=== PATIENT | male | born 1960 | race Caucasian/White ===

== ENCOUNTER → 2019-11-20 | Day surgery (SDC) | payer OTHER ==
[~2019-11-20] MED LIST: ATORVASTATIN CA10 MG PO; BUPIVACAINE 0.5%/EPI 30 ML SDV INJ ONE; CEFAZOLIN SOD 1 GM/NS 50ML 100 ML IV ONE; DEXAMETHASONE SOD PHOS INJ 4 MG/ML VIAL ONE; LIDOCAINE HCL 2% JELLY 5 ML TUBE ONE; LIDOCAINE HCL 2% LOCAL INJ 5 ML SDV VIAL INJ ONE; LOSARTAN POTASS25 MG PO; MIDAZOLAM HCL 2 MG/2 ML VIAL ONE; OMEPRAZOLE40 MG PO; ONDANSETRON HCL INJ 2MG/ML 2ML 2 MG/ML VIAL ONE; PROPOFOL IV EMULSION 10 MG/ML 20 ML VIAL ONE; SEVOFLURANE INHAL SOLN 250 ML PEN BTL ONE
[2019-11-20 11:24] VITALS: BP 142/95
--- NOTE | 2019-11-23 22:33 | Operative Report ---
DATE OF PROCEDURE: 11/20/2019 SURGEON: Rafa Cid MD PREOPERATIVE DIAGNOSES: 1. Left knee medial meniscus tear. 2. Left knee degenerative joint disease of the knee. POSTOPERATIVE DIAGNOSES: 1. Left knee medial meniscus tear. 2. Left knee degenerative joint disease of the knee. OPERATIONS/PROCEDURES PERFORMED: The patient underwent left knee exam under anesthesia, left knee arthroscopy, left knee partial medial meniscectomy; left knee chondroplasty of the patella, the trochlea, the medial femoral condyle, the medial tibial plateau, and the lateral tibial plateau. BLUEPRINT DEVELOPER: There was no health education assistant. ANESTHESIA: General endotracheal intubation anesthesia. IV FLUIDS: Per the anesthesia record. BLOOD LOSS: Less than 5 mL. COMPLICATIONS: None. BRIEF DESCRIPTION OF THE PATIENT'S OPERATIVE PROCEDURE: Mr. Cummings was taken to the operating room and placed in supine position on the operating table. Following induction of general anesthesia as well as endotracheal intubation, the patient's left lower extremity was examined under anesthesia. He was found to have a mild effusion within the knee joint, but otherwise ligamentously stable knee. The patient's lower extremity was prepped and draped in a standard surgical fashion. A two-port technique used to provide this patient arthroscopic evaluation of the knee joint. Examination of suprapatellar pouch, medial lateral and gutters were found no evidence of loose bodies. There was however evidence of chondromalacia of the patella and trochlear surfaces. The scope was advanced to the medial compartment. Examination of the medial compartment demonstrated a torn posterior horn and root of the medial meniscus. There was also chondromalacia of the articulating surfaces. A combination of biting forceps and motorized shaver used to resect the torn portion of the meniscus. Chondroplasties of the medial femoral condyle and medial tibial plateau performed at this time. Scope was then advanced to the intercondylar notch and the anterior cruciate ligament identified and found to be intact. The scope was advanced to the lateral compartment and chondromalacia of the lateral tibial plateau was encountered. A chondroplasty of the lateral tibial plateau was performed at this time. The scope was then advanced to the suprapatellar pouch and chondroplasties of the patellar and trochlear performed. The knee was then deflated with sterile normal saline. Each of the portal sites were closed using 4-0 nylon suture. The portal sites as well as knee itself were injected with 0.5% Marcaine with epinephrine. Sterile dressings were applied and the patient was then awakened and taken to postanesthesia care unit in stable condition. MD VINNY Sims/BRISEIDA /[id number]
== END | disposition home or self-care (01) ==
LOC: OR 07:55
PROVIDERS: ATTEND Specialist
DX: S83.222A Peripheral tear of medial meniscus, current injury, left knee, initial encounter (principal); M17.12 Unilateral primary osteoarthritis, left knee; M22.42 Chondromalacia patellae, left knee; I10 Essential (primary) hypertension; G47.33 Obstructive sleep apnea (adult) (pediatric); K21.9 Gastro-esophageal reflux disease without esophagitis; X58.XXXA Exposure to other specified factors, initial encounter; Z01.810 Encounter for preprocedural cardiovascular examination; Z01.812 Encounter for preprocedural laboratory examination; Z11.59 Encounter for screening for other viral diseases
CPT/HCPCS: 29881; 93005; J0690; J1100; J2001 ×2; J2250; J2405; J2704; U0002